=== PATIENT | female | born 2005 | race Caucasian/White ===

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

== ENCOUNTER 2024-01-05 00:42 | Emergency (ER) | payer OTHER, SELFPAY ==
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
[2024-01-05 00:49] VITALS: BP 130/86; PULSE 99; RESP 16; TEMP 36.7; O2SAT 100; BMI 18.5
== END 2024-01-05 03:04 | disposition left against medical advice (07) ==
LOC: HO.ED 02:59
PROVIDERS: Emergency Provider Emergency Medicine
DX: M79.642 Pain in left hand (principal)
CPT/HCPCS: 73120; 99281

== ENCOUNTER 2024-10-02 10:10 | Emergency (ER) | payer OTHER, SELFPAY ==
--- NOTE | ~2024-10-02 | CT_ITS ---
EXAMINATION: CT brain and CT cervical spine without contrast. CLINICAL INDICATION: Head Injury. COMPARISON: CT brain 10/15/2022. TECHNIQUE: 5 mm thin axial and reformatted 2 mm thin sagittal and coronal images of brain were obtained. Subsequently axial 3 mm thin and reformatted 2 minute thin sagittal and coronal images of cervical spine were obtained. DLP: 889 mGy/cm. This CT examination was performed using dose optimization techniques as appropriate, variously including the following: *Automated exposure control *Adjustment of mA and/or kV according to patient size (this includes techniques or standardized protocols for targeted exams where dose is matched to indication/reason for exam; i.e. extremities or head) *Use of iterative reconstruction technique. FINDINGS: BRAIN: There is no acute intra-axial, extra-axial bleed, masses or midline shift. There is no acute infarction evolution. There is no edema. Vivas to white matter differentiation is maintained. The lateral ventricles are symmetrical in size and normal. No abnormality seen in the posterior fossa. Bone windows reveal no calvarial abnormality. Bilateral paranasal sinuses and mastoid air cells are well-aerated. The scalp soft tissues are normal. CERVICAL SPINE: There is mild straightening of cervical lordosis. The vertebral heights, alignment and disc heights are normal. The craniovertebral junction and the C1-C2 alignment is normal. There is no visible acute fracture, dislocation or subluxation seen. The prevertebral soft tissues are normal. The paravertebral soft tissues are normal. The lung apices are clear. CT/CT head/brain wo IV con IMPRESSION: Unremarkable CT brain without contrast. Mild straightening of cervical lordosis likely spasm or positional. Otherwise unremarkable CT cervical spine exam exam. Electronically signed by: Mukesh Joseph MD 10/02/2024 11:43 AM EDT
--- NOTE | ~2024-10-02 | CT_ITS ---
EXAMINATION: CT brain and CT cervical spine without contrast. CLINICAL INDICATION: Head Injury. COMPARISON: CT brain 10/15/2022. TECHNIQUE: 5 mm thin axial and reformatted 2 mm thin sagittal and coronal images of brain were obtained. Subsequently axial 3 mm thin and reformatted 2 minute thin sagittal and coronal images of cervical spine were obtained. DLP: 889 mGy/cm. This CT examination was performed using dose optimization techniques as appropriate, variously including the following: *Automated exposure control *Adjustment of mA and/or kV according to patient size (this includes techniques or standardized protocols for targeted exams where dose is matched to indication/reason for exam; i.e. extremities or head) *Use of iterative reconstruction technique. FINDINGS: BRAIN: There is no acute intra-axial, extra-axial bleed, masses or midline shift. There is no acute infarction evolution. There is no edema. Vivas to white matter differentiation is maintained. The lateral ventricles are symmetrical in size and normal. No abnormality seen in the posterior fossa. Bone windows reveal no calvarial abnormality. Bilateral paranasal sinuses and mastoid air cells are well-aerated. The scalp soft tissues are normal. CERVICAL SPINE: There is mild straightening of cervical lordosis. The vertebral heights, alignment and disc heights are normal. The craniovertebral junction and the C1-C2 alignment is normal. There is no visible acute fracture, dislocation or subluxation seen. The prevertebral soft tissues are normal. The paravertebral soft tissues are normal. The lung apices are clear. CT/CT cervical spine wo IV con IMPRESSION: Unremarkable CT brain without contrast. Mild straightening of cervical lordosis likely spasm or positional. Otherwise unremarkable CT cervical spine exam exam. Electronically signed by: Mukesh Joseph MD 10/02/2024 11:43 AM EDT
[2024-10-02 10:16] VITALS: BP 140/100; PULSE 80; RESP 18; TEMP 35.9; O2SAT 99; BMI 21.5
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
[2024-10-02 12:04] VITALS: BP 140/100; PULSE 80; RESP 18; TEMP 35.9; O2SAT 99
== END 2024-10-02 12:08 | disposition home or self-care (01) ==
LOC: HO.ED 12:07
PROVIDERS: Emergency Provider Emergency Medicine
DX: S06.0X0A Concussion without loss of consciousness, initial encounter (principal); W22.8XXA Striking against or struck by other objects, initial encounter; Y93.89 Activity, other specified; Y92.9 Unspecified place or not applicable; Y99.9 Unspecified external cause status; M54.2 Cervicalgia
CPT/HCPCS: 70450; 72125; 99282; 99284

== ENCOUNTER → 2024-10-02 10:17 | Outpatient (BNV) | payer OTHER, SELFPAY | PROVIDERS: Emergency Provider Emergency Medicine; Visit Provider Radiology Diagnostic Radiology | DX: S09.90XA Unspecified injury of head, initial encounter (principal) | CPT/HCPCS: 70450; 72125 ==